=== PATIENT | female | born 1985 | race Two or more races ===

== ENCOUNTER 2021-07-01 13:38 | Outpatient (REF) | payer OTHER, SELFPAY ==
[2021-07-09 04:56] LABS: HPV mRNA E6/E7 rflx Detected (Not Detected)
[2021-07-09 05:01] LABS: HPV 16 RNA NOT DETECTED (NOT DETECTED)
== END 2021-07-01 13:39 | disposition home or self-care (01) ==
LOC: HO.LAB 13:38
PROVIDERS: PCP Physician Assistant; Visit Provider Advanced Practice Midwife
DX: Z01.419 Encounter for gynecological examination (general) (routine) without abnormal findings (principal); Z11.51 Encounter for screening for human papillomavirus (HPV)
CPT/HCPCS: 87624; 87625; 88142

== ENCOUNTER 2021-07-17 09:33 | Outpatient (REF) | payer OTHER, SELFPAY ==
[2021-07-17 10:48] LABS: Thyroid Stimulating Hormone 1.03 uIU/mL (0.32-4.0)
[2021-07-19 17:36] LABS: DHEA Sulfate 288 mcg/dL (19-237); Prolactin 10.9 ng/mL
[2021-07-22 12:21] LABS: Testosterone, Total 21 ng/dL (2-45)
== END 2021-07-17 09:34 | disposition home or self-care (01) ==
LOC: HO.LAB 09:33
PROVIDERS: Absent Provider Physician Assistant; PCP Physician Assistant; Visit Provider Advanced Practice Midwife
DX: L68.0 Hirsutism (principal); L70.9 Acne, unspecified
CPT/HCPCS: 36415; 82627; 83498; 84146; 84402; 84403; 84443

== ENCOUNTER 2021-07-22 10:52 | Outpatient (REF) | payer OTHER, SELFPAY ==
--- NOTE | ~2021-07-22 | US_ITS ---
EXAMINATION: US PELVIS CLINICAL INFORMATION: Hirsutism COMPARISON: None TECHNIQUE: Ultrasound of the pelvis is performed using both transabdominal and transvaginal transducers along with Doppler. Transvaginal imaging is performed due to inadequate visualization transabdominally. FINDINGS: The uterus is anteverted and measures 8 x 4.1 x 4.5 cm in dimension. No focal uterine lesion is seen. Endometrial thickness is normal measuring 0.3 cm. The ovaries are normal-appearing. The right ovary measures 3.1 x 1.1 x 2 cm and the left ovary measures 2.6 x 1.8 x 1.5 cm. There is no fluid in the pelvis. US/US pelvic and transvaginal IMPRESSION: Normal pelvic ultrasound.
== END 2021-07-22 10:53 | disposition home or self-care (01) ==
LOC: HO.US 10:52
PROVIDERS: Visit Provider Advanced Practice Midwife
DX: L68.0 Hirsutism (principal); L70.9 Acne, unspecified
CPT/HCPCS: 76830; 76856

== ENCOUNTER → 2021-08-05 14:49 | Outpatient (BNVA) | payer OTHER, SELFPAY | PROVIDERS: PCP Physician Assistant; Visit Provider Advanced Practice Midwife | DX: R79.89 Other specified abnormal findings of blood chemistry (principal) ==

== ENCOUNTER 2021-08-27 12:48 | Emergency (ER) | payer OTHER, SELFPAY ==
[2021-08-27 13:10] VITALS: BP 152/92; PULSE 76; RESP 18; O2SAT 99; BMI 33.3
[2021-08-27 14:00] VITALS: BP 132/74; PULSE 78; RESP 16; O2SAT 100
--- NOTE | 2021-08-27 14:06 | ED.GENADULT ---
HPI - General Adult General Chief complaint: Nausea/Vomiting/Diarrhea Stated complaint: N/V/D severe abd pain/chills Time Seen by Provider: 08/27/21 14:04 Source: patient Limitations: no limitations History of Present Illness HPI narrative: This is a 35-year-old female who 3 days ago developed nasal congestion rhinorrhea. The patient has had feeling of sinus congestion has been using over the counter sinus spray. She denies any sore throat which she has had chills but no fever. She has had a cough primarily associated with postnasal drip. She denies any allergy symptoms such as sneezing excessively or having itchy eyes. She has had COVID immunizations as well as had COVID in February. She was seen in urgent care today and had a negative COVID test negative influenza. The patient is noted she had diarrhea starting 2 days ago, worse yesterday with about 5-6 episodes yesterday. She has had some pain in her left lower abdomen which was worse yesterday, somewhat improved today. She noted the pain was worse with coughing. She denies any urinary symptoms such as dysuria or urinary frequency. Related Data Home Medications Medication Instructions Recorded Confirmed multivitamin (Daily Multi-Vitamin) 1 tab PO DAILY 04/20/21 08/17/21 fexofenadine 60 mg-pseudoephedrine 1 tab PO Q12H PRN 07/01/21 08/17/21 ER 120 mg tablet,ext.release,12 hr (Nimo-D 12 Hour) ibuprofen 200 mg tablet 400 mg PO Q8H 07/01/21 08/17/21 lactobacillus combination no.4 3 3,000 mmu cells PO DAILY 07/01/21 08/17/21 billion cell capsule (Probiotic) tumeric 100 mg-jimmy 150 mg-olive cap PO 07/01/21 08/17/21 50 mg-oreg 150 mg-caprylate capsule vitamin B complex 1 cap PO DAILY 07/01/21 08/17/21 Allergies Allergy/AdvReac Type Severity Reaction Status Date / Time minocycline Allergy Intermediate Hives Verified 08/17/21 13:40 Review of Systems Review of Systems: Yes all other systems are reviewed and are negative Constitutional: Constitutional: Reports as per HPI, Reports chills and Denies fever(s) Eyes: Eyes: Reports as per HPI and Reports no additional eye complaints ENT: Reports system reviewed and no additional complaints, except as documented, Reports as per HPI, Reports nasal congestion, Reports nasal discharge and Denies sore throat Cardiovascular: Cardiovascular: Reports as per HPI, Denies chest pain and Denies dyspnea Respiratory: Respiratory: Reports as per HPI, Reports cough and Denies dyspnea Gastrointestinal: Gastrointestinal: Reports as per HPI, Reports abdominal pain, Reports diarrhea, Reports nausea and Denies vomiting Genitourinary: Genitourinary: Reports as per HPI, Denies hematuria, Denies urinary frequency and Denies dysuria Musculoskeletal: Musculoskeletal: Reports no additional musculoskeletal complaints and Denies numbness Integumentary/Breasts: Skin/Breast: Reports as per HPI and Denies rash Neurologic: Reports as per HPI, Denies focal weakness and Denies numbness Psychiatric: Psychiatric: Reports no additional psychiatric complaints and Reports as per HPI Endocrine: Endocrine: Reports no additional endocrine complaints and Reports as per HPI Hematologic/Lymphatic: Hematologic/Lymphatic: Reports no additional hematologic/lymphatic complaints, Reports as per HPI and Reports other (No peripheral edema) [facility] Past Medical History Medical History Obesity (BMI 30.0-34.9) Seasonal allergies Surgical History History of nasal surgery History of wisdom tooth extraction Family History Family History (Updated 08/17/21 @ 13:44 by Ector Dee PA-C) Mother HTN (hypertension) Heart attack, Onset Age: 55 Father DMII (diabetes mellitus, type 2) Social History Social History (Updated 08/17/21 @ 13:45 by Ector Dee PA-C) Housing: House Alcohol intake: current Alcohol intake frequency: a few times a month Patient Tobacco Use Status: Never used Tobacco e-Cigarette/Vaping Use: Never Used Second Hand Smoke Exposure: No Advance Directives: No Advance Directives Information Provided: Yes service: No Current occupational status: employed 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[employer] Sexual orientation: Straight/Heterosexual Gender identity: Female Cognitive needs: No Hearing needs: No Vision needs: Yes (glasses) Physical Exam ED Vital Signs: Vital Signs - 24 hr 08/27/21 13:10 08/27/21 14:00 Pulse Rate 76 78 Respiratory Rate 18 16 Blood Pressure 152/92 H 132/74 Pulse Oximetry 99 100 Oxygen Delivery Method Room Air Room Air BMI result Body Mass Index 33.3 Const General: no acute distress Orientation/consciousness: patient oriented x3 HENMT Head: Yes normal to inspection General nose exam: Normal external nose present Mouth: moist mucous membranes Throat: Yes posterior oropharynx normal, Yes tonsils normal and Yes uvula midline Eyes Eyelids: Yes eyelids normal Conjunctivae: conjunctivae normal Pupils: Equal, round and reactive pupils present Neck Neck: Yes supple Resp Effort & Inspection: normal respiratory effort Auscultation: clear to auscultation bilaterally Cardio Rate: regular rate Rhythm: regular rhythm Heart sounds: S1 normal heart sound present, S2 normal heart sound present, no gallops, no murmurs and no rubs GI Inspection: No distended Palpation (GI): Soft to palpation and Tenderness to palpation present (GI) (Mild left lower quadrant, no guarding, no CVA tenderness) Auscultation: normal bowel sounds Skin General skin exam: other (Warm and dry) Neuro General: patient oriented x3 and CN's II-XI intact bilaterally Cranial nerves: Yes Equal, round and reactive pupils present Extrem General: Yes no pedal edema Psych Affect: normal affect Attitude: cooperative Medical Decision Making [facility] Narrative Medical decision making narrative: Patient with a combination of nasal congestion, postnasal drip, mild cough, diarrhea, and left lower quadrant pain that was worse yesterday. Patient had minimal tenderness on exam, does not appear ill. White blood cell count is 7.8. Chemistry panel unremarkable, urinalysis negative. Very low clinical suspicion for diverticulitis given the overall clinical picture, did not feel that imaging to evaluate for diverticulitis or ovarian pathology was indicated. Patient likely has a viral syndrome. Patient had negative COVID influenza test done in urgent care today. Patient was improved with Toradol and normal saline Lab Data Lab results reviewed: Yes I reviewed the patient's lab results. Result diagrams: 08/27/21 14:29 08/27/21 14:29 Labs: Lab Results 08/27/21 08/27/21 08/27/21 Range/Units 14:29 14:29 15:31 WBC 7.8 (4.8-10.8) X10*3/uL RBC 4.37 (4.20-5.50) X10*6/uL Hgb 13.6 (12.0-16.0) g/dl Hct 41.1 (37.0-47.0) % MCV 94.1 (80.0-98.0) fL MCH 31.1 (27.0-33.0) pg MCHC 33.1 (31.0-35.0) g/dl RDW 12.2 (11.0-16.0) % Plt Count 198 (160-400) X10*3/uL MPV 11.2 (9.4-12.3) fL Immature Gran % (Auto) 0.3 (0.0-0.4) % Neut % (Auto) 70.6 (45-73) % Lymph % (Auto) 20.0 (20-40) % Braxton % (Auto) 8.0 (2-11) % Eos % (Auto) 0.8 (0-4) % Baso % (Auto) 0.3 (0-2) % Lymph # (Auto) 1.6 (1.2-4.9) X10*3/uL Braxton # (Auto) 0.6 (0.1-1.2) X10*3/uL Eos # (Auto) 0.1 (0.0-0.4) X10*3/uL Baso # (Auto) 0.0 (0.0-0.2) X10*3/uL Abs Immat Gran (auto) 0.02 (0.00-0.03) X10*3/uL Absolute Neuts (auto) 5.5 (2.0-8.3) x10*3/uL Absolute Nucleated RBC 0.000 (0.0-0.012) X10*3/uL Nucleated RBC % (auto) 0.0 (0.0-0.2) /100WBC Sodium 137 (135-145) mmol/L Potassium 4.2 (3.3-5.1) mmol/L Chloride 101 (96-108) mmol/L Carbon Dioxide 27 (22-29) mmol/L Anion Gap 13 (12-20) BUN 8 L (9-16) mg/dL Creatinine 0.80 (0.5-1.4) mg/dL Estim Creat Clear Calc 107.1 Estimated GFR > 60 Random Glucose 88 (60-115) mg/dL Calcium 8.9 (8.4-10.2) mg/dL Total Bilirubin 0.5 (0.0-1.0) mg/dL AST 24 (5-31) U/L ALT 22 (0-31) U/L Alkaline Phosphatase 59 (39-117) U/L Total Protein 7.3 (6.5-8.0) g/dL Albumin 4.4 (3.5-5.0) g/dL Urine Color YELLOW Urine Appearance CLEAR Urine pH 6.0 (5.0-8.0) Ur Specific Gays 1.020 (1.005-1.025) Urine Protein NEG (NEG-TRACE) MG/DL Urine Glucose (UA) NEG (NEG) MG/DL Urine Ketones >=80 (NEG) MG/DL Urine Blood TRACE (NEG) Urine Nitrite NEG (NEG) Ur Leukocyte Esterase NEG (NEG) Urine RBC 1-4 (0) /HPF Urine WBC 0-2 (0-4) /HPF Ur Squamous Epith Cells 2+ /LPF Urine Bacteria 2+ /LPF Urine Test (NEGATIVE) 08/27/21 Range/Units 15:31 WBC (4.8-10.8) X10*3/uL RBC (4.20-5.50) X10*6/uL Hgb (12.0-16.0) g/dl Hct (37.0-47.0) % MCV (80.0-98.0) fL MCH (27.0-33.0) pg MCHC (31.0-35.0) g/dl RDW (11.0-16.0) % Plt Count (160-400) X10*3/uL MPV (9.4-12.3) fL Immature Gran % (Auto) (0.0-0.4) % Neut % (Auto) (45-73) % Lymph % (Auto) (20-40) % Braxton % (Auto) (2-11) % Eos % (Auto) (0-4) % Baso % (Auto) (0-2) % Lymph # (Auto) (1.2-4.9) X10*3/uL Braxton # (Auto) (0.1-1.2) X10*3/uL Eos # (Auto) (0.0-0.4) X10*3/uL Baso # (Auto) (0.0-0.2) X10*3/uL Abs Immat Gran (auto) (0.00-0.03) X10*3/uL Absolute Neuts (auto) (2.0-8.3) x10*3/uL Absolute Nucleated RBC (0.0-0.012) X10*3/uL Nucleated RBC % (auto) (0.0-0.2) /100WBC Sodium (135-145) mmol/L Potassium (3.3-5.1) mmol/L Chloride (96-108) mmol/L Carbon Dioxide (22-29) mmol/L Anion Gap (12-20) BUN (9-16) mg/dL Creatinine (0.5-1.4) mg/dL Estim Creat Clear Calc Estimated GFR Random Glucose (60-115) mg/dL Calcium (8.4-10.2) mg/dL Total Bilirubin (0.0-1.0) mg/dL AST (5-31) U/L ALT (0-31) U/L Alkaline Phosphatase (39-117) U/L Total Protein (6.5-8.0) g/dL Albumin (3.5-5.0) g/dL Urine Color Urine Appearance Urine pH (5.0-8.0) Ur Specific Gays (1.005-1.025) Urine Protein (NEG-TRACE) MG/DL Urine Glucose (UA) (NEG) MG/DL Urine Ketones (NEG) MG/DL Urine Blood (NEG) Urine Nitrite (NEG) Ur Leukocyte Esterase (NEG) Urine RBC (0) /HPF Urine WBC (0-4) /HPF Ur Squamous Epith Cells /LPF Urine Bacteria /LPF Urine Test NEGATIVE (NEGATIVE) Discharge Plan Discharge Clinical Impression: Acute upper respiratory infection, Diarrhea, Colicky left lower quadrant pain Patient Disposition: Home, Self-Care Instructions: Viral Syndrome (ED), Abdominal Pain (ED) Additional Instructions: Drink plenty of fluids. He can try using Afrin spray, as well as Flonase spray for your nasal symptoms. Return for any new or worsened symptoms such as progressive abdominal pain, fever, pain with movement or walking. Prescriptions: No Action multivitamin [Daily Multi-Vitamin] Tablet 1 tab PO DAILY fexofenadine-pseudoephedrine [Nimo-D 12 Hour] 60-120 mg tablet extended release 12 hr 1 tab PO Q12H PRN ibuprofen 200 mg tablet 400 mg PO Q8H Probiotic 3 billion cell capsule 3,000 mmu cells PO DAILY Rx Instructions: administer with a meal cgohfxq-vyws-orqmx-oreg-capryl 100 mg-150 mg- 50 mg-150 mg capsule PO vitamin B complex Capsule 1 cap PO DAILY Interventions: ED Discharge Assessment Last Done: 08/27/21 16:25 Discharge Date/Time: 08/27/21 16:26
[2021-08-27] MEDS: 0.9 % Sodium Chloride 1,000 ML 999 ML IV (14:29)
[2021-08-27] MEDS: Ketorolac Tromethamine 15 MG/ML VIAL IVPUSH (14:29)
[2021-08-27 14:38] LABS: MANUAL DIFF FLAG NO
[2021-08-27 14:39] LABS: Basophils Percent Auto 0.3 % (0-2); Eosinophils Absolute Auto 0.1 X10*3/uL (0.0-0.4); Eosinophils Percent Auto 0.8 % (0-4); Hematocrit 41.1 % (37.0-47.0); Hemoglobin 13.6 g/dl (12.0-16.0); Imm Gran Abs Auto 0.02 X10*3/uL (0.00-0.03); Imm Gran Pct Auto 0.3 % (0.0-0.4); Lymphocytes Absolute Auto 1.6 X10*3/uL (1.2-4.9); Mean Corpuscular HGB Conc 33.1 g/dl (31.0-35.0); Mean Corpuscular Hemoglobin 31.1 pg (27.0-33.0); Mean Corpuscular Volume 94.1 fL (80.0-98.0); Mean Platelet Volume 11.2 fL (9.4-12.3); Monocytes Absolute Auto 0.6 X10*3/uL (0.1-1.2); Neutrophils Absolute Auto 5.5 x10*3/uL (2.0-8.3); Neutrophils Percent Auto 70.6 % (45-73); Platelet Count 198 X10*3/uL (160-400); Red Blood Count 4.37 X10*6/uL (4.20-5.50); Red Cell Distribution Width 12.2 % (11.0-16.0); White Blood Count 7.8 X10*3/uL (4.8-10.8)
[2021-08-27 15:00] LABS: Alanine Aminotransferase 22 U/L (0-31); Albumin Level 4.4 g/dL (3.5-5.0); Alkaline Phosphatase 59 U/L (39-117); Anion Gap 13 (12-20); Aspartate Amino Transferase 24 U/L (5-31); Bilirubin Total 0.5 mg/dL (0.0-1.0); Blood Urea Nitrogen 8 mg/dL (9-16); Calcium 8.9 mg/dL (8.4-10.2); Carbon Dioxide 27 mmol/L (22-29); Chloride 101 mmol/L (96-108); Creatinine Clr Calc Pharmacy 107.1; Estimated Glomerular Filt Rate > 60; Glucose Random 88 mg/dL (60-115); Potassium 4.2 mmol/L (3.3-5.1); Sodium 137 mmol/L (135-145); Total Protein 7.3 g/dL (6.5-8.0)
[2021-08-27 15:43] LABS: Appearance Urine CLEAR; Color Urine YELLOW; Glucose Urine UA NEG (NEG); Leukocyte Esterase Urine NEG (NEG); Nitrite Urine NEG (NEG); UACC Culture Trigger NO; Urine Blood TRACE (NEG); Urine Ketones >=80 MG/DL (NEG); Urine Protein NEG (NEG-TRACE)
[2021-08-27 15:47] LABS: UPreg QC Valid YES; Urine Pregnancy NEGATIVE (NEGATIVE)
[2021-08-27 15:53] LABS: Bacteria Urine 2+ /LPF; Squamous Epithelial Cell Urine 2+ /LPF; WBC Urine 0-2 /HPF (0-4)
== END 2021-08-27 16:26 | disposition home or self-care (01) ==
PROVIDERS: Emergency Provider Emergency Medicine; PCP Physician Assistant
DX: J06.9 Acute upper respiratory infection, unspecified (principal); R19.7 Diarrhea, unspecified; R10.32 Left lower quadrant pain
CPT/HCPCS: 36415; 80053; 81001; 81025; 85025; 96361; 96374; 99284; J1885

== ENCOUNTER 2021-09-11 08:32 | Outpatient (REF) | payer OTHER, SELFPAY ==
[2021-09-11 09:17] LABS: Hematocrit 41.4 % (37.0-47.0); Hemoglobin 13.6 g/dl (12.0-16.0); Mean Corpuscular HGB Conc 32.9 g/dl (31.0-35.0); Mean Corpuscular Hemoglobin 30.8 pg (27.0-33.0); Mean Corpuscular Volume 93.9 fL (80.0-98.0); Mean Platelet Volume 11.6 fL (9.4-12.3); Platelet Count 199 X10*3/uL (160-400); Red Blood Count 4.41 X10*6/uL (4.20-5.50); Red Cell Distribution Width 12.7 % (11.0-16.0); White Blood Count 8.3 X10*3/uL (4.8-10.8)
[2021-09-11 09:23] LABS: Estimated Average Glucose 108 mg/dL; Hemoglobin A1c % 5.4 %
[2021-09-11 09:35] LABS: Alanine Aminotransferase 17 U/L (0-31); Albumin Level 4.3 g/dL (3.5-5.0); Alkaline Phosphatase 53 U/L (39-117); Anion Gap 12 (12-20); Aspartate Amino Transferase 18 U/L (5-31); Bilirubin Total 0.8 mg/dL (0.0-1.0); Blood Urea Nitrogen 17 mg/dL (9-16); Carbon Dioxide 25 mmol/L (22-29); Chloride 104 mmol/L (96-108); Cholesterol 181 mg/dL; Estimated Glomerular Filt Rate > 60; Glucose Fasting 91 mg/dL (60-99); HDL Cholesterol 54 mg/dL; LDL Cholesterol Calculated 118 mg/dl; Potassium 4.8 mmol/L (3.3-5.1); Sodium 136 mmol/L (135-145); Total Protein 7.1 g/dL (6.5-8.0); Triglycerides 45 mg/dL
[2021-09-11 09:56] LABS: TSH reflex Free T4 1.14 uIU/mL (0.32-4.0); Vitamin D 25-OH Total 29.3 ng/mL (>30)
== END 2021-09-11 08:33 | disposition home or self-care (01) ==
LOC: HO.LAB 08:32
PROVIDERS: PCP Physician Assistant; Visit Provider Physician Assistant
DX: Z13.29 Encounter for screening for other suspected endocrine disorder (principal); Z13.220 Encounter for screening for lipoid disorders; E66.09 Other obesity due to excess calories; Z68.32 Body mass index [BMI] 32.0-32.9, adult
CPT/HCPCS: 36415; 80053; 80061; 82306; 83036; 84443; 85027

== ENCOUNTER → 2021-10-27 13:30 | Outpatient (BNVA) | payer OTHER, SELFPAY | PROVIDERS: PCP Physician Assistant; Visit Provider Dietitian, Registered | DX: Z71.3 Dietary counseling and surveillance (principal); L68.0 Hirsutism; E66.9 Obesity, unspecified | CPT/HCPCS: 97802 ==

== ENCOUNTER 2021-12-13 08:49 | Outpatient (REF) | payer OTHER, SELFPAY ==
[2021-12-13 09:59] LABS: Anion Gap 13 (12-20); Blood Urea Nitrogen 10 mg/dL (9-16); Calcium 8.9 mg/dL (8.4-10.2); Carbon Dioxide 27 mmol/L (22-29); Chloride 105 mmol/L (96-108); Estimated Glomerular Filt Rate > 60; Glucose Random 95 mg/dL (60-115); Potassium 5.1 mmol/L (3.3-5.1); Sodium 140 mmol/L (135-145)
[2021-12-13 10:12] LABS: Creatinine, mg/dL 74.44
[2021-12-13 10:13] LABS: Creatinine, 24Hr Urine 1.4 G/Day (1.0-2.0); Total Volume 24 Hour Urine 1850 mL
[2021-12-20 09:32] LABS: Cortisol Free, 24 Hr Urine 30.4 mcg/24 h (4.0-50.0); Creatinine, 24 Hr Urine 1.44 g/24 h (0.50-2.15); Total Volume, 24 Hr Urine 1850 mL
== END 2021-12-13 08:50 | disposition home or self-care (01) ==
LOC: HO.LAB 08:49
PROVIDERS: PCP Physician Assistant; Visit Provider Internal Medicine Endocrinology, Diabetes & Metabolism
DX: L68.0 Hirsutism (principal)
CPT/HCPCS: 36415; 80048; 82530; 82570

== ENCOUNTER 2022-01-04 12:47 | Outpatient (REF) | payer OTHER, SELFPAY ==
[2022-01-04 14:32] LABS: Potassium 4.4 mmol/L (3.3-5.1)
== END 2022-01-04 12:48 | disposition home or self-care (01) ==
LOC: HO.LAB 12:47
PROVIDERS: PCP Physician Assistant; Visit Provider Internal Medicine Endocrinology, Diabetes & Metabolism
DX: L68.0 Hirsutism (principal)
CPT/HCPCS: 36415; 84132

== ENCOUNTER → 2022-02-01 13:52 | Outpatient (BNVA) | payer OTHER, SELFPAY | PROVIDERS: PCP Physician Assistant; Visit Provider Dietitian, Registered | DX: Z71.3 Dietary counseling and surveillance (principal); L68.0 Hirsutism; E66.9 Obesity, unspecified | CPT/HCPCS: 97803 ==

== ENCOUNTER → 2022-03-22 16:26 | Outpatient (BNVA) | payer OTHER, SELFPAY | PROVIDERS: PCP Physician Assistant; Visit Provider Internal Medicine Endocrinology, Diabetes & Metabolism | DX: L68.0 Hirsutism (principal) ==

== ENCOUNTER 2022-09-12 09:44 | Outpatient (REF) | payer OTHER, SELFPAY ==
--- NOTE | ~2022-09-12 | XR_ITS ---
EXAMINATION: XR WRIST, RIGHT CLINICAL INFORMATION: Right wrist pain COMPARISON: None available. TECHNIQUE: Four views of the right wrist. FINDINGS: Mild degenerative changes first carpometacarpal joint with joint space narrowing and hypertrophic change. No displaced fracture. Recommend follow-up imaging in 10-14 days if fracture is suspected. XR/XR wrist RT 2V IMPRESSION: Mild degenerative changes first carpometacarpal joint. No displaced fracture. Recommend follow-up imaging in 10-14 days if fracture is suspected.
== END 2022-09-12 09:45 | disposition home or self-care (01) ==
LOC: HO.LAB 09:44
PROVIDERS: PCP Physician Assistant; Visit Provider Physician Assistant
DX: Z13.1 Encounter for screening for diabetes mellitus (principal); M25.531 Pain in right wrist; E28.2 Polycystic ovarian syndrome; E66.9 Obesity, unspecified
CPT/HCPCS: 36415; 73100; 80053; 84443; 85027

== ENCOUNTER 2022-11-08 14:00 | Outpatient (RCR) | payer OTHER, SELFPAY ==
--- NOTE | 2022-10-13 13:47 | MHC.OT.EP ---
[address] [phone] Occupational Therapy Plan of Care Patient Name: Pema Price Date of Evaluation: 10/13/22 Diagnosis: Right Wrist Pain Pain Location: Pain free at rest 7/10 sharp pain in volar wrist, radiating up to base of thumb and at times into volar forearm Pain Score: 7 Pain Scale Used: Numeric (0 - 10) Aggravating Factors: Weightbearing, heavy lifting Alleviating Factors: Orthosis wear (thumb spica), steam room heat or hot pack, ice occasionally Not using medications Assessment: 36 yo female presents w/ worsening right thumb and wrist pain over the past year. 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 On assessment, she has good range, strength and coordination in both hands. She has mild adduction posture of thumb w/ thumb-index opposition, but has good engagement in conversation regarding thumb protection and initiation of stabilization exercises. I anticipate she will do well w/ brief course of OT w/ goal of self management of thumb and wrist pain through HEP and activity modification. Frequency and Duration: The patient will be seen 1x/wk for 2 weeks Short Term Goals: Ind w/ HEP Pt to report ease w/ awareness of CMC positioning during daily activities Pt to report good use of heat and ice appropriate for thumb and dorsal wrist/forearm pain due to overuse activities Vegetable [employer] Goals: Treatment Plan: Therapeutic Exercise Therapeutic Activity Home Exercise Program Patient Education Edema Control ADL Training Paraffin Fluidotherapy MHP Cold Packs Joint Mobilization Soft Tissue Mobilization Kinesiotaping Electronically Signed By: SHARI Matos/Jatinder CHT Please Sign and return to therapist. Thank you once again for your referral.
--- NOTE | 2022-11-09 09:59 | MHC.OT.DC ---
[address] [phone] F: [phone] Occupational Therapy Discharge Note Patient Name: Pema Price Provider: Ector Dee PA-C Diagnosis: Right Wrist Pain Date of Evaluation: 10/13/22 Date of Discharge: 11/08/22 Treatments to Date: 2 Discharge Status: Achieved Goals Independent with HEP Discharge Summary: Pema was referred to OT for assessment and recommendations for right wrist/hand pain. Symptoms consistent with earely stages CMC arthritis and she has done well w/ brief course of OT. She has good follow through w/ HEP and orthosis wear, reports reduction of pain and edema, good understanding of activity modification and use of adaptive equip as needed. Will likely purchase paraffin wax for comfort. Electronically Signed By: Isamar Troncoso OTR/L CHT Please Sign and return to therapist, thank you for your referral.
== END 2022-11-09 09:59 | disposition home or self-care (01) ==
LOC: HO.OT 14:00
PROVIDERS: PCP Physician Assistant; Visit Provider Physician Assistant
DX: M25.531 Pain in right wrist (principal)
CPT/HCPCS: 97110; 97140; 97165

== ENCOUNTER 2023-02-23 09:05 | Outpatient (REF) | payer OTHER, SELFPAY ==
[2023-03-04 06:19] LABS: HPV 16 RNA NOT DETECTED (NOT DETECTED); HPV mRNA E6/E7 rflx Detected (Not Detected)
== END 2023-02-23 09:06 | disposition home or self-care (01) ==
LOC: HO.LNP 09:05
PROVIDERS: PCP Physician Assistant; Visit Provider Advanced Practice Midwife
DX: Z01.419 Encounter for gynecological examination (general) (routine) without abnormal findings (principal); Z87.42 Personal history of other diseases of the female genital tract
CPT/HCPCS: 87624; 87625; 88142

== ENCOUNTER 2023-02-23 09:05 | Outpatient (AMB) | payer OTHER, SELFPAY ==
[2023-02-23 09:14] VITALS: BP 124/74; BMI 34.6
--- NOTE | 2023-02-23 09:14 | MHC.OFFVIS ---
Intake Vital Signs 02/23/23 09:14 Height 5 ft 5 in Weight 208 lb BMI 34.6 BP 124/74 Intake Visit Reasons: Annual Chlorine Cell Tender Required: No Information Interpreted: non-clinical & clinical Comparison Shopper: Comparison Shopper Present (Jose Manuel) Allergies minocycline Allergy (Intermediate, Verified 02/23/23 09:19) Hives Is last menstrual period known: Yes Last menstrual period: 02/02/23 Post menopausal: No HPI HPI Comments History of Present Illness Details She is a premenopausal woman presenting for annual examination. Doing well with no concerns. She tries to eat healthy and stays active with exercise. Regular monthly menses. Currently is sexually active. Use condoms and fertility awareness. Hx. of PCOS, goals are occurring regularly your seen by Endocrine in the past in has the option of follow-up and restart spironolactone if needed. She is not interested in control today. She denies vaginal itching and irritation. STI screening offered; she declines. Denies family history of breast, ovarian or colon cancer. Last pap smear HPV positive. Prior Pap done at [facility] cytology was negative no HPV results were noted in our record. Patient reports years ago she had HPV positive results. Current recommendations for pap smears per ASCCP guidelines. [facility] Medical History Obesity (BMI 30.0-34.9) Seasonal allergies Surgical History History of wisdom tooth extraction History of nasal surgery Family History Mother HTN (hypertension) Heart attack, Onset Age: 55 Father DMII (diabetes mellitus, type 2) Social History Household Members: Spouse and Family Household Members Other:: , son Housing: House Alcohol intake: current Alcohol intake frequency: a few times a month Patient Tobacco Use Status: Never used Tobacco e-Cigarette/Vaping Use: Never Used Second Hand Smoke Exposure: No Substance Use Type: Marijuana service: No Current occupational status: employed 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/hazards: No Sexual orientation: Straight/Heterosexual Gender identity: Female Cognitive needs: No Hearing needs: No Vision needs: Yes (glasses) Female Reproductive History Menstrual Age of Menarche: 10 Duration of menses: 6-7 days Date of last menstrual period: 02/02/23 control method: none and condoms Total pregnancies: 4 Full term: 1 Number of Living Children: 1 Ab spontaneous: 3 Date of last pap smear: 07/02/21 (+HPV) History of abnormal pap smear: Yes Review of Systems Const All systems reviewed & are unremarkable except as noted in HPI and below Reports as per HPI Eyes Reports no additional complaints ENT Reports no additional complaints Card Reports no additional complaints Resp Reports no additional complaints GI Reports as per HPI and Reports no additional complaints Reports as per HPI Musc Reports no additional complaints Skin/Breast Reports as per HPI Neuro Reports no additional complaints Psych Reports no additional complaints Endo Reports no additional complaints Alfred/Lymph Reports no additional complaints Aller/Immun Reports no additional complaints Physical Exam Vital Signs: Last Vital Signs BP 124/74 02/23/23 09:14 BMI result Body Mass Index 34.6 Const General: cooperative, healthy appearing, no acute distress, well developed and alert Orientation/consciousness: patient oriented x3 HEENT Head: Yes normal to inspection Eyes General: appearance normal, both eyes and all related structures Neck Neck: Yes normal visual inspection Thyroid: Thyroid normal Chest Chest palpation & inspection: normal inspection of the chest and other (no puckering, dimpling, peau de orange, retraction, discharge, masses) Breast/axilla inspection: normal inspection of the breasts Breast/axilla palpation: normal palpation of the breasts Resp Effort & Inspection: normal respiratory effort GI Inspection: Yes normal to inspection Palpation (GI): Soft to palpation Rectal Exam - Female: deferred General: Yes bladder normal to palpation External Female Exam: normal external appearance and normal appearance of the urethra Speculum Exam - Vagina: normal appearance of the vagina, normal palpation and normal vaginal discharge Speculum Exam - Cervix: normal appearance of the cervix and normal palpation Bimanual exam- vagina & uterus: normal bimanual exam, normal palpation, uterine size normal, bladder normal to palpation, normal palpation and non-tender Bimanual Exam- Adnexa, other: no masses Skin General skin exam: no rashes or lesions noted Rashes: no rashes Neuro General: patient oriented x3 Cognition (Neuro): normal cognition Extrem General: Yes normal to inspection Psych Attitude: cooperative Thought process: Normal thought process present Assessment & Plan Assessment & Plan (1) Encounter for well woman exam with routine gynecological exam: Code(s): Z01.419 - Encounter for gynecological examination (general) (routine) without abnormal findings (2) History of abnormal cervical Pap smear: Code(s): Z87.42 - Personal history of other diseases of the female genital tract Plan Discussed: Current recommendations for pap smears per ASCCP guidelines. Anticipatory guidance: HPV findings and observations, await results if negative plan repeat Pap next year. If positive will need a colposcopy. Breast awareness and periodic breast exams. Order placed for mammogram to be done after her 38th birthday next year. Counseled regarding not wearing any talcum powder, deodorant, lotions, creams or sprays. Maintain a healthy lifestyle including a well balanced diet and routine exercise. Use condoms for prevention. Sign a release for Pap HPV P results from 01/31/2020 from [facility]. All of her questions and concerns were addressed to the best of my ability. 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 Orders: Orders MM tomosynthesis screening BI 12/28/23 Z12.31 - Encounter for screening mammogram for malignant neoplasm of breast Coding Level of Care Code Est Pt Prev Care [id number]([id number]) Diagnoses Encounter for well woman exam with routine gynecological exam Z01.419 History of abnormal cervical Pap smear Z87.42
== END 2023-02-23 10:01 | disposition home or self-care (01) ==
PROVIDERS: PCP Physician Assistant; Visit Provider Advanced Practice Midwife
DX: Z01.419 Encounter for gynecological examination (general) (routine) without abnormal findings (principal); Z87.42 Personal history of other diseases of the female genital tract
CPT/HCPCS: 99395

== ENCOUNTER 2023-04-06 14:02 | Outpatient (REF) | payer OTHER, SELFPAY | END 2023-04-06 14:03 | disposition home or self-care (01) | LOC: HO.LNP 14:02 | PROVIDERS: PCP Physician Assistant; Visit Provider Obstetrics & Gynecology | DX: R87.610 Atypical squamous cells of undetermined significance on cytologic smear of cervix (ASC-US) (principal); R87.810 Cervical high risk human papillomavirus (HPV) DNA test positive; Z32.02 Encounter for pregnancy test, result negative | CPT/HCPCS: 57454; 81025; 88305 ==

== ENCOUNTER 2023-04-06 14:02 | Outpatient (AMB) | payer OTHER, SELFPAY ==
[2023-04-06 14:22] VITALS: BP 122/70; BMI 34.6
--- NOTE | 2023-04-06 14:22 | A.OFFVIS_ITS ---
Intake Vital Signs 04/06/23 14:22 Height 5 ft 5 in Weight 208 lb BMI 34.6 BP 122/70 Intake Visit Reasons: Colposcopy Game Artist Required: No Information Interpreted: non-clinical & clinical Window Shade Installer: Window Shade Installer Present (Natalie) Allergies minocycline Allergy (Intermediate, Verified 04/06/23 14:22) Hives Is last menstrual period known: Yes Last menstrual period: 03/30/23 Post menopausal: No Patient : No HPI HPI Comments History of Present Illness Details Presenting for colposcopy for ascus/HPV E6/E7 positive [facility] Medical History Obesity (BMI 30.0-34.9) Seasonal allergies Surgical History History of wisdom tooth extraction History of nasal surgery Family History Mother HTN (hypertension) Heart attack, Onset Age: 55 Father DMII (diabetes mellitus, type 2) Social History Household Members: Spouse and Family Household Members Other:: , son Housing: House Alcohol intake: current Alcohol intake frequency: a few times a month Patient Tobacco Use Status: Never used Tobacco e-Cigarette/Vaping Use: Never Used Second Hand Smoke Exposure: No Substance Use Type: Marijuana Patient : No service: No Current occupational status: employed 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[employer] Current occupational exposures/hazards: No Sexual orientation: Straight/Heterosexual Gender identity: Female Cognitive needs: No Hearing needs: No Vision needs: Yes (glasses) Female Reproductive History Menstrual Age of Menarche: 10 Date of last menstrual period: 03/30/23 control method: none Review of Systems Const All systems reviewed & are unremarkable except as noted in HPI and below Reports as per HPI and Reports no additional complaints GI Reports no additional complaints Reports no additional complaints Physical Exam Vital Signs: Last Vital Signs BP 122/70 04/06/23 14:22 BMI result Body Mass Index 34.6 Office Procedures Colposcopy Before the procedure was started discussed with the patient the procedure, alternatives & all the risks associated with the procedure (bleeding, infection, injury to vagina, bladder, vessels, possible need for transfusion with all its risks) then patient signed the consent UPT done in the office & negative Pap smear = ascus/HPV E6/E7 positive Speculum inserted, acetic acid used Colposcopy done Transformation zone seen, acetowhite lesions identified at 5+6+7+11+12+1+3 o?clock, cervical biopsies taken from 5+6+7+11+12+1+3 o?clock, ECC done afterwards. Vaginoscopy of the upper vagina showed no evidence of any aceto-white lesions Monsel solution used for hemostasis. The patient tolerated well . At the end the patient was instructed to call if temp>100.4, abdominal pain, n/v, bleeding; The patient was given the following instructions: nothing per vagina, no intercourse or bath tub use. All questions answered the patient verbalized understanding. Instructed the patient to make an appointment in 2 weeks for follow-up This note was generated with a voice recognition program. Some errors may have b een overlooked during the review of this note. Sometimes these errors may affect the content or meaning of a given sentence. [id number]-[id number] of cervix including upper vagina with biopsy and ECC Procedure code (CPT) selection complete Results AMB Test Urine AMB Test Urine Negative Last Edit by LEANNA Bartlett on 04/06/23 14:24 Results Reviewed Results Reviewed: Laboratory Last Values Tst Clinic Negative 04/06/23 14:23 Assessment & Plan Assessment & Plan (1) ASCUS with positive high risk HPV cervical: Code(s): R87.610 - Atypical squamous cells of undetermined significance on cytologic smear of cervix (ASC-US); R87.810 - Cervical high risk human papillomavirus (HPV) DNA test positive Plan: Colpo done, see procedure note Orders: Orders AMB HCG Urine Test Today Z32.02 - Encounter for test, result negative AMB Colposcopy Today R87.610 - Atypical squamous cells of undetermined significance on cytologic smear of cervix (ASC-US), R87.810 - Cervical high risk human papillomavirus (HPV) DNA test positive Coding Level of Care Code Procedure Only Diagnoses ASCUS with positive high risk HPV cervical R87.610; R87.810 CPT Codes Colposcopy - CPT: 97956-Agqsxfeez of cervix including upper vagina with biopsy and ECC ([id number])
== END 2023-04-06 14:40 | disposition home or self-care (01) ==
LOC: HO.HWS 14:02
PROVIDERS: PCP Physician Assistant; Visit Provider Obstetrics & Gynecology
DX: R87.610 Atypical squamous cells of undetermined significance on cytologic smear of cervix (ASC-US) (principal); R87.810 Cervical high risk human papillomavirus (HPV) DNA test positive; Z32.02 Encounter for pregnancy test, result negative
CPT/HCPCS: 57454

== ENCOUNTER 2023-05-11 12:09 | Outpatient (AMB) | payer OTHER, SELFPAY ==
--- NOTE | 2023-05-11 12:12 | MHC.OFFVIS ---
Intake Vital Signs 05/11/23 12:14 Height 5 ft 5 in Weight 208 lb BMI 34.6 BP 118/70 Intake Visit Reasons: Colpo results Cruise Coordinator Required: No Information Interpreted: non-clinical & clinical Assistant Service Manager: Assistant Service Manager Present Accompanied by: Self / Same As Patient Allergies minocycline Allergy (Intermediate, Verified 05/11/23 12:15) Hives Is last menstrual period known: Yes Last menstrual period: 04/26/23 Post menopausal: No Patient : No HPI HPI Comments History of Present Illness Details Presenting post colpo for follow-up. The patient is doing well with no complaints. The pathology showed the following: A. Cervix, 1:00, biopsy: Squamous mucosa and rare detached endocervical glandular epithelial cells; negative for dysplasia. B. Cervix, 3:00, biopsy: Squamous and endocervical glandular mucosa with acute and chronic inflammation and reactive changes; negative for dysplasia. C. Cervix, 6:00, biopsy: Squamous mucosa and rare detached endocervical glandular epithelial cells; negative for dysplasia. D. Cervix, 7:00, biopsy: Squamous and endocervical glandular mucosa; negative for dysplasia. E. Cervix, 11:00, biopsy: Squamous and endocervical glandular mucosa with focal mild atypia (see comment). F. Cervix, 12:00, biopsy: Squamous and endocervical glandular mucosa with focal reactive changes; negative for dysplasia. D. Endocervix, curettage: Endocervical glandular mucosa with scant metaplastic squamous epithelium with inflammation and reactive changes; negative for dysplasia. Comment: (F): The atypia is insufficient for unequivocal diagnosis of mild dysplasia. There is no evidence of high- grade dysplasia. The rare atypical cells in the patient's previous Pap test ([id number]) are similar to the atypical cells in the biopsy [facility] Medical History Obesity (BMI 30.0-34.9) Seasonal allergies Surgical History History of wisdom tooth extraction History of nasal surgery Family History Mother HTN (hypertension) Heart attack, Onset Age: 55 Father DMII (diabetes mellitus, type 2) Social History Household Members: Spouse and Family Household Members Other:: , son Housing: House Alcohol intake: current Alcohol intake frequency: a few times a month Patient Tobacco Use Status: Never used Tobacco e-Cigarette/Vaping Use: Never Used Second Hand Smoke Exposure: No Substance Use Type: Marijuana service: No Current occupational status: employed 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/hazards: No Sexual orientation: Straight/Heterosexual Gender identity: Female Cognitive needs: No Hearing needs: No Vision needs: Yes (glasses) Female Reproductive History Menstrual Age of Menarche: 10 Date of last menstrual period: 04/26/23 Review of Systems Const All systems reviewed & are unremarkable except as noted in HPI and below Reports as per HPI and Reports no additional complaints GI Reports no additional complaints Reports no additional complaints Physical Exam Vital Signs: Last Vital Signs BP 118/70 05/11/23 12:14 BMI result Body Mass Index 34.6 Assessment & Plan Assessment & Plan (1) ASCUS with positive high risk HPV cervical: Comment: Biopsy ? Equivocal for REGINE 1 Code(s): R87.610 - Atypical squamous cells of undetermined significance on cytologic smear of cervix (ASC-US); R87.810 - Cervical high risk human papillomavirus (HPV) DNA test positive Plan: Discussed with the patient the pathology results of the colposcopy biopsies & endocervical curettage (1 biopsy equivocal for mild dysplasia-REGINE 1). Discussed with the patient the sensitivity specificity, positive and negative predictive value in detecting cervical cancer in addition discussed the regression, persistence and progression rates. Recommended co-testing in 12 months, if cytology and or HPV are abnormal will proceed was colposcopy biopsy and endocervical curettage, if lesions gets worse or stays persistent for 2 years will proceed with loop electric excision procedure. Instructions given to the patient to schedule a co test appointment in 1 year. All questions answered the patient verbalized understanding. Coding Level of Care Code Est Pt Level 3 (22575) Diagnoses ASCUS with positive high risk HPV cervical R87.610; R87.810
[2023-05-11 12:14] VITALS: BP 118/70; BMI 34.6
== END 2023-05-11 12:26 | disposition home or self-care (01) ==
PROVIDERS: PCP Physician Assistant; Visit Provider Obstetrics & Gynecology
DX: R87.610 Atypical squamous cells of undetermined significance on cytologic smear of cervix (ASC-US) (principal); R87.810 Cervical high risk human papillomavirus (HPV) DNA test positive
CPT/HCPCS: 99213

== ENCOUNTER → 2023-05-11 12:09 | Outpatient (BNVA) | payer OTHER, SELFPAY | PROVIDERS: PCP Physician Assistant; Visit Provider Obstetrics & Gynecology ==

== ENCOUNTER 2023-08-22 16:04 | Outpatient (AMB) | payer OTHER, SELFPAY ==
[2023-08-22 16:08] VITALS: BP 148/88; PULSE 76; O2SAT 99; BMI 34.9
--- NOTE | 2023-08-22 16:08 | A.OFFPC_ITS ---
Vital Signs 08/22/23 16:08 Height 5 ft 5 in Weight 210 lb BMI 34.9 BP 148/88 H Blood Pressure Location Lt brachial Position Sitting Pulse 76 Pulse Source Pulse Oximeter Pulse Oximetry (%) 99 Oxygen Delivery Method Room Air Intake Visit Reasons: PE Intake Note: Patient is here today for a physical. Personal Clothing Laundry Aide Required: No Accompanied by: Self / Same As Patient Is last menstrual period known: Yes Last menstrual period: 08/22/23 Allergies minocycline Allergy (Intermediate, Verified 08/22/23 16:19) Hives Medication List - Last Reconciled 08/22/23 by Ector Dee PA-C multivitamin (Daily Multi-Vitamin tablet) 1 tab PO DAILY Tobacco use date assessed: 08/22/23 HPI PE HPI Details Patient is a 37 year female here today for a annual physical. No past medical history with exception of elevated BMI. ? She works at [employer] in [employer]. Concern--> she reports she has been having lower back/buttocks pain especially after physical activity. She attributes this to her distant injury to her left buttocks. She is somewhat interested in physical therapy those worried about cost. She has been doing her own home stretches. She is willing to try a muscle relaxer to help as needed for pain. .. Anxiety: She has been suffering with more anxiety as of late to which she has been doing nonpharmacological techniques to help reduce her anxiety. She has not interested in any medication at this time though is interested in cognitive behavioral therapy. Will refer to counseling .. PCOS: Has been diagnosed with PCOS by her die cast operator and has been working on special dietary changes to help regulate her mood and weight. 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 She does have a family history diabetes and heart disease. RENAL NURSE:?followed [place] [facility], found to have elevated DHEA levels, Pap showing positive HPV. She has gotten cervical biopsy. .. Vaccine: declines Flu,? ?up-to-date with COVID vaccine, Needs Tdap. Laboratory Tests 07/01/21 07/17/21 09/11/21 14:28 09:51 08:52 RBC 4.41 Fasting Glucose TSH DHEA Sulfate 288 H Tst Clin ic HPV E6/E7 mRNA Detected A 09/12/22 02/23/23 04/06/23 09:53 10:08 14:23 RBC Fasting Glucose 102 H TSH 1.24 DHEA Sulfate Tst Clin ic Negative HPV E6/E7 mRNA Detected A [facility] Medical History Obesity (BMI 30.0-34.9) Seasonal allergies Surgical History History of wisdom tooth extraction History of nasal surgery Family History Mother HTN (hypertension) Heart attack, Onset Age: 55 Father DMII (diabetes mellitus, type 2) Social History (Updated 08/22/23 @ 16:23 by Ector Dee PA-C) Household Members: Spouse and Family Household Members Other:: , son Housing: House Alcohol intake: current Alcohol intake frequency: a few times a month Patient Tobacco Use Status: Never used Tobacco e-Cigarette/Vaping Use: Never Used Second Hand Smoke Exposure: No Substance Use Type: Marijuana service: No Current occupational status: employed 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[employer] Current occupational exposures/hazards: No Sexual orientation: Straight/Heterosexual Gender identity: Female Cognitive needs: No Hearing needs: No Vision needs: Yes (glasses) Female Reproductive History Menstrual Age of Menarche: 10 Date of last menstrual period: 08/22/23 Questionnaire PHQ-9 Over the last 2 weeks, how often have you been bothered by any of the following problems? 1. Little interest or pleasure in doing things: not at all 2. Feeling down, depressed, or hopeless: not at all 3. Trouble falling or staying asleep, or sleeping too much: not at all 4. Feeling tired or having little energy: not at all 5. Poor appetite or overeating: not at all 6. Feeling bad about yourself - or that you are a failure or have let yourself or your family down: not at all 7. Trouble concentrating on things, such as reading the newspaper or watching television: not at all 8. Moving or speaking so slowly that other people could have noticed. Or the opposite - being so fidgety or restless that you have been moving around a lot more than usual: not at all 9. Thoughts that you would be better off or of hurting yourself in some way: not at all Total score: 0 Depression Screening Interpretation: Negative Depression Screening Done: Yes 67402 - PHQ-9 Billing: Yes Source: Developed by Drs. Brooks France, Airam Key, Cory Hall and colleagues, with an educational derik from [employer]. Thrive Questionnaire Date Thrive assessed: 08/22/23 I am a: Patient What is your living situation today?: I have a steady place to live Within the past 12 months, did the food you bought not last and you didn't have the money to get more?: Never true Within the past 12 months, did you worry whether your food would run out before you got money to buy more?: Never true Do you have trouble paying for medicines?: No Do you have trouble getting transportation to medical appointments?: No Do you have trouble paying your heating and electricity bill?: No Do you have trouble taking care of your child, family member or friend?: No Do you have trouble with day-to-day activities such as bathing, preparing meals, shopping, managing finances, etc.?: No Are you currently unemployed and looking for a job?: No Are you interested in more education?: No Please select the resources that you would like help with: None Currently or been in a relationship where the following occur: no concerns reported THRIVE Score: 0 AUDIT C Alcohol Use Questionnaire (AUDIT-C) 1. How often do you have a drink containing alcohol?: Monthly or less 2. How many drinks containing alcohol do you have on a typical day when you are drinking?: 1 or 2 3. How often do you have six or more drinks on one occasion?: Never Total Score: 1 FERNY-7 AMB Questionnaire FERNY-7 Date FERNY - 7 assessed: 08/22/23 Feeling nervous, anxious, or on edge: 0 = Not at all Not being able to stop or control worryin = Several days Worrying too much about different things: 1 = Several days Trouble relaxin = Several days Being so restless that it is hard to sit still: 0 = Not at all Becoming easily annoyed or irritable: 0 = Not at all Feeling afraid as if something awful might happen: 0 = Not at all Total FERNY-7 score (0-4 normal; 5-9 mild; 10-14 moderate; 15-21 severe): 3 Source: Developed by Drs. Brooks France, Airam Key, Cory Hall and colleagues, with an educational derik from [employer]. FERNY-7 Assessment Billing FERNY-7 Assessment Tool: FERNY-7 Assessment 49899 Review of Systems Const Denies body aches, Denies chills, Denies excessive sweating, Denies fatigue, Denies fever(s) and Denies headache(s) Eyes Denies blurry vision ENT Denies dysphagia, Denies vertigo, Denies dizziness, Denies headache(s), Denies hearing loss and Denies tinnitus Card Denies chest pain, Denies chest pain with activity, Denies syncope, Denies irregular heart rhythm and Denies dyspnea Resp Denies chest congestion, Denies cough, Denies hemoptysis, Denies dyspnea and Denies wheezing GI Denies abdominal pain, Denies melena, Denies hematochezia, Denies coffee ground emesis, Denies dysphagia, Denies diarrhea, Denies nausea and Denies vomiting Denies urinary frequency, Denies dysuria, Denies urinary hesitancy and Denies urinary urgency Musc Denies arthralgias, Denies limited range of motion, Denies muscle cramps and Denies muscle weakness Skin/Breast Denies rash and Denies skin ulcer Neuro Denies Abnormal speech present, Denies confusion, Denies vertigo, Denies dizziness, Denies syncope, Denies headache(s), Denies memory loss and Denies seizure-like activity Psych Denies anxiety, Denies confusion, Denies depression, Denies memory loss, Denies panic attacks and Denies paranoia Endo Denies excessive sweating, Denies fatigue, Denies flushing, Denies polydipsia and Denies polyuria Aller/Immun Denies wheezing Physical exam (Primary Care) Vital Signs: Last Vital Signs Pulse 76 08/22/23 16:08 BP 148/88 H 08/22/23 16:08 Pulse Ox 99 08/22/23 16:08 Oxygen Delivery Method Room Air 08/22/23 16:08 BMI result Body Mass Index 34.9 BMI Assessment/Plan discussion: High BMI High, discussed plan: lifestyle, weight reduction and physical activity Tobacco/Smoking Status: Tobacco use Status Tobacco use date assessed 06/11/24 06/11/24 16:12 Patient Tobacco Use Status Never used Tobacco 08/22/23 16:23 e-Cigarette/Vaping Use Never Used 08/22/23 16:23 PHQ-9: PHQ-9 Score PHQ-9: Total score 0 08/22/23 16:45 Depression Screening Interpretation: Negative Thrive Assessment: Date of Thrive Assessment Date Thrive assessed 08/22/23 08/22/23 16:12 Currently or been in a relationship where the following occur: no concerns reported Const General: cooperative, comfortable, no acute distress, alert and awake; No confusion Orientation/consciousness: oriented to person, oriented to place, patient oriented x3 and No confusion HENMT Head: Yes normocephalic Ears: external ears normal and TM's normal bilaterally Face and sinus: No sinus tenderness Mouth: Normal oral and palatal mucosa present and tongue normal Teeth and gingiva: dentition normal and gingiva normal Throat: Yes posterior oropharynx normal, Yes tonsils normal and Yes uvula midline Eyes Conjunctivae: conjunctivae normal Sclerae: sclerae normal Pupils: Equal, round and reactive pupils present EOM: EOMs intact bilaterally Direct Ophthalmoscopy: No no photophobia Neck Neck: Yes no lymphadenopathy, No tender and Yes no JVD Thyroid: Thyroid normal Carotids: no bruits Chest Chest palpation & inspection: no tenderness Resp Effort & Inspection: normal respiratory effort, no audible wheezes, not labored and no stridor Auscultation: no crackles, no rales, no rhonchi and no wheezes Cardio Jugular venous distension: no JVD Rate: regular rate, not bradycardic and not tachycardic Rhythm: regular rhythm Bruits: no carotid bruits Peripheral pulses: Peripheral pulses 2+ throughout GI Inspection: Yes normal to inspection, No abdominal wall ecchymosis and No visible herniation Palpation (GI): Soft to palpation, nontender, no guarding, not rigid and No hepatosplenomegaly present Auscultation: normoactive bowel sounds General: Yes no CVA tenderness Back/Spine/Pelvis Back: no CVA tenderness and No back tenderness Cervical Spine: cervical ROM normal Thoracic/Lumbar Spine: thoracic and lumbar spine normal to inspection, straight leg raise negative bilaterally, No thoraco-lumbar ROM limited and No lumbar spinal tenderness Skin Lesions: no lesions Rashes: no rashes Wounds: no wounds Neuro General: oriented to person, oriented to place, patient oriented x3, CN's II-XI intact bilaterally and No confusion Cranial nerves: Yes Equal, round and reactive pupils present and Yes Normal ac commodation reflex present Cognition (Neuro): normal cognition Speech: No Abnormal speech present Gait exam (Neuro): Normal gait present Motor exam (neuro): 5/5 motor strength present throughout Extrem Right upper extremity: full ROM; no cyanosis Left upper extremity: full ROM; no cyanosis Right lower extremity: no edema Left lower extremity: no edema Psych Appearance: grossly normal Mental Status: mental status grossly normal Affect: normal affect Attitude: cooperative Thought process: Normal thought process present Immunizations Boostrix Tdap 2.5 Lf unit-8 mcg-5 Lf/0.5 mL intramuscular syringe Performing Provider: Ector Dee PA-C [facility] Administered by: SHAHLA Hernandez on 08/22/23 16:53 Dose Route Admin Location Dispensed Lot Number Expiration Date NDC Track Maintainer 0.5 mL IM Right Deltoid 0.5 mL [id number] 10/18/25 [id number] [employer] VIS Given Date VIS Provided VIS Publication Date 08/22/23 Single Vaccine 20 Eligibility Eligibility Date Funding Source Not [facility] Eligible 08/22/23 Private Assessment and Plan Assessment & Plan (1) Annual physical exam: Code(s): Z00.00 - Encounter for general adult medical examination without abnormal findings (2) Obese: Code(s): E66.9 - Obesity, unspecified Qualifiers: Body mass index: BMI 32.0-32.9 Obesity classification: adult class 1 (BMI 30 - 34.9) Obesity type: due to excess calories Serious obesity comorbidity presence: without serious comorbidity Qualified Code(s): E66.09 - Other obesity due to excess calories; Z68.32 - Body mass index [BMI] 32.0-32.9, adult Plan: Patient does understand her BMI is over 30 and continues to work on being more physically active and adapting to better eating habits to reduce her weight. (3) PCOS (polycystic ovarian syndrome): Code(s): E28.2 - Polycystic ovarian syndrome Plan: Has been diagnosed with PCOS and continues on dietary and lifestyle modifications (4) Screening for diabetes mellitus (DM): Code(s): Z13.1 - Encounter for screening for diabetes mellitus (5) ASCUS with positive high risk HPV cervical: Comment: Biopsy ? Equivocal for REGINE 1 Code(s): R87.610 - Atypical squamous cells of undetermined significance on cytologic smear of cervix (ASC-US); R87.810 - Cervical high risk human papillomavirus (HPV) DNA test positive Plan: Followed by [place] [facility] office. Did have cervical biopsy and REGINE 1, continues follow-up (6) Elevated fasting glucose: Code(s): R73.01 - Impaired fasting glucose Plan: Did have a slightly elevated fasting blood sugar. Will check an A1c (7) Low back pain: Code(s): M54.50 - Low back pain, unspecified Qualifiers: Back pain laterality: unspecified Chronicity: chronic Sciatica presence: without sciatica Qualified Code(s): M54.50 - Low back pain, unspecified; G89.29 - Other chronic pain Plan: Patient does report having some lower back pain and tension from time to time especially after she does some physical activity. She is interested in trying a muscle relaxer as needed. She is apprehensive on doing therapy or getting x- rays due to insurance costs. (8) FERNY (generalized anxiety disorder): Code(s): F41.1 - Generalized anxiety disorder Plan: Patient' ferny 7 score positive for anxiety which has been existing condition for her. She is interested in cognitive behavioral therapy. Will refer to counseling (9) Elevated blood pressure reading: Code(s): R03.0 - Elevated blood-pressure reading, without diagnosis of hypertension Plan: Noted elevated blood pressure readings today in office. Patient reports she has been feeling bit anxious and believes this is the reason for high blood pressure. She will monitor blood pressure at home over the next few weeks and correspond in the portal about blood pressure readings. Will consider spironolactone as a blood pressure medication and to help with some of her PCOS symptoms. Orders: Orders Hemoglobin A1c 08/22/23 E28.2 - Polycystic ovarian syndrome, R73.01 - Impaired fasting glucose Comprehensive [place]. Panel Fast 08/22/23 Z13.1 - Encounter for screening for diabetes mellitus Complete Blood Count no Diff 08/22/23 R87.610 - Atypical squamous cells of undetermined significance on cytologic smear of cervix (ASC-US), R87.810 - Cervical high risk human papillomavirus (HPV) DNA test positive TDaP Immunization 08/22/23 M54.50 - Low back pain, unspecified, Z23 - Encounter for immunization Referrals Counseling Referral F41.1 - Generalized anxiety disorder Medications: New baclofen 5 mg PO DAILY 10 tabs 0RF 10 days M54.50 - Low back pain, unspecified Patient Instructions: Goal: Continue working on weight reduction, monitor blood pressure at home with blood pressure readings to be below 140/90 Barriers: Adherence to physical activity and healthy eating habits Coding Level of Care Code Est Pt Prev Care 18-39y(04786) Diagnoses Annual physical exam Z00.00 Class 1 obesity due to excess calories without serious comorbidity with body mass index (BMI) of 32.0 to 32.9 in adult E66.09; Z68.32 Body mass index: BMI 32.0-32.9 Obesity classification: adult class 1 (BMI 30 - 34.9) Obesity type: due to excess calories Serious obesity comorbidity presence: without serious comorbidity PCOS (polycystic ovarian syndrome) E28.2 Screening for diabetes mellitus (DM) Z13.1 ASCUS with positive high risk HPV cervical R87.610; R87.810 Elevated fasting glucose R73.01 Chronic low back pain without sciatica, unspecified back pain laterality M54.50; G89.29 Back pain laterality: unspecified Chronicity: chronic Sciatica presence: without sciatica FERNY (generalized anxiety disorder) F41.1 Elevated blood pressure reading R03.0 Additional Codes FERNY-7 Assessment Billing - FERNY-7 Assessment Tool: FERNY-7 Assessment [id number] ([id number])
== END 2023-08-22 16:48 | disposition home or self-care (01) ==
PROVIDERS: PCP Physician Assistant; Visit Provider Physician Assistant
DX: Z23 Encounter for immunization (principal); M54.50 Low back pain, unspecified
CPT/HCPCS: 90471; 90715; 99395

== ENCOUNTER 2023-08-28 09:52 | Outpatient (AMB) | payer OTHER, SELFPAY ==
[2023-08-28 09:52] VITALS: BP 136/70; PULSE 76; TEMP 36.2; O2SAT 98; BMI 34.8
--- NOTE | 2023-08-28 09:52 | AM.OFFWIN_ITS ---
Intake Vital Signs 08/28/23 09:52 Height 5 ft 5 in Weight 209 lb BMI 34.8 BP 136/70 Blood Pressure Location Lt brachial Position Sitting Pulse 76 Temp 97.2 F Temp Source Temporal Artery Scan Pulse Oximetry (%) 98 Oxygen Delivery Method Room Air Intake Visit Reasons: EP chest congestion ear infection Intake Note: pt is here today for chest congestion started 2 weeks ago Patient Tobacco Use Status: Never used Tobacco Allergies minocycline Allergy (Intermediate, Verified 08/28/23 09:57) Hives Do you need a note to return to daycare/school/sports/work: Yes HPI HPI Comments History of Present Illness Details Patient is a 37-year-old female with a past medical history of chronic bilateral ear infections complaining of chest congestion, postnasal drip, sinus pain, cough with green phlegm, some diarrhea that she attributes to the phlegm and fatigue x2 weeks. She states her also has similar symptoms, was seen at an urgent Care but given [id number] medications to treat his illness and has not gotten better. She has been using Mucinex with some relief. She denies any fevers [facility] Medical History Obesity (BMI 30.0-34.9) Seasonal allergies Surgical History History of wisdom tooth extraction History of nasal surgery Family History Mother HTN (hypertension) Heart attack, Onset Age: 55 Father DMII (diabetes mellitus, type 2) Social History (Updated 08/22/23 @ 16:23 by Ector Dee PA-C) Household Members: Spouse and Family Household Members Other:: , son Housing: House Alcohol intake: current Alcohol intake frequency: a few times a month Patient Tobacco Use Status: Never used Tobacco e-Cigarette/Vaping Use: Never Used Second Hand Smoke Exposure: No Substance Use Type: Marijuana service: No Current occupational status: employed 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[employer] Current occupational exposures/hazards: No Sexual orientation: Straight/Heterosexual Gender identity: Female Cognitive needs: No Hearing needs: No Vision needs: Yes (glasses) Female Reproductive History Menstrual Age of Menarche: 10 Review of Systems Const All systems reviewed & are unremarkable except as noted in HPI and below Physical Exam Vital Signs: Last Vital Signs Temp 97.2 F 08/28/23 09:52 Pulse 76 08/28/23 09:52 BP 136/70 08/28/23 09:52 Pulse Ox 98 08/28/23 09:52 Oxygen Delivery Method Room Air 08/28/23 09:52 BMI result Body Mass Index 34.8 Const General: cooperative, healthy appearing, comfortable and no acute distress Orientation/consciousness: patient oriented x3 Limitations: no limitations HEENT Head: Yes normal to inspection Ears: external ears normal, TM normal on the left and TM abnormal wth effusion and erythematous General nose exam: Normal external nose present, Normal nares present and No nasal discharge present Face and sinus: Yes normal facial exam and Yes sinuses nontender Mouth: Normal oral and palatal mucosa present and moist mucous membranes Throat: Yes posterior oropharynx normal (Difficult to see) Eyes General: appearance normal, both eyes and all related structures Neck Neck: Yes normal visual inspection Resp Effort & Inspection: normal respiratory effort, able to speak in complete sentences, Actively coughing, no respiratory distress, not tachypneic, no tripod positioning and no use of accessory muscles Auscultation: clear to auscultation bilaterally Cardio Rate: regular rate Rhythm: regular rhythm Heart sounds: normal S1 and S2 Skin General skin exam: no rashes or lesions noted Neuro General: patient oriented x3 Extrem General: Yes normal to inspection and Yes no clubbing, cyanosis or edema Assessment & Plan Assessment & Plan (1) Sinusitis: Code(s): J32.9 - Chronic sinusitis, unspecified Qualifiers: Sinusitis location: unspecified location Chronicity: acute Recurrence: non-recurrent Qualified Code(s): J01.90 - Acute sinusitis, unspecified Plan: As she has been sick for 2 weeks and her has similar symptoms and is not getting better without antibiotics, we will treat with antibiotics. Unclear if the right ear was infected, likely developing infection. Plan see above Medications: New amoxicillin-pot clavulanate 875-125 mg 1 tab PO Q12H 10 tabs 0RF Coding Level of Care Code Est Pt Level 3 (17092) Diagnoses Acute non-recurrent sinusitis, unspecified location J01.90 Sinusitis location: unspecified location Chronicity: acute Recurrence: non-recurrent
== END 2023-08-28 10:33 | disposition home or self-care (01) ==
PROVIDERS: PCP Physician Assistant; Visit Provider Physician Assistant
DX: J01.90 Acute sinusitis, unspecified (principal)
CPT/HCPCS: 99213

== ENCOUNTER 2023-10-21 09:43 | Outpatient (REF) | payer OTHER, SELFPAY ==
[2023-10-21 10:09] LABS: Hematocrit 40.6 % (37.0-47.0); Hemoglobin 13.3 g/dl (12.0-16.0); Mean Corpuscular HGB Conc 32.8 g/dl (31.0-35.0); Mean Corpuscular Hemoglobin 30.9 pg (27.0-33.0); Mean Corpuscular Volume 94.4 fL (80.0-98.0); Mean Platelet Volume 11.2 fL (9.4-12.3); Platelet Count 235 X10*3/uL (160-400); Red Cell Distribution Width 12.3 % (11.0-16.0); White Blood Count 7.8 X10*3/uL (4.8-10.8)
[2023-10-21 10:20] LABS: Estimated Average Glucose 105 mg/dL; Hemoglobin A1c % 5.3 % (<6.0)
[2023-10-21 10:51] LABS: Alanine Aminotransferase 17 U/L (0-31); Albumin Level 4.4 g/dL (3.5-5.0); Alkaline Phosphatase 55 U/L (39-117); Anion Gap 11 (12-20); Aspartate Amino Transferase 18 U/L (5-31); Bilirubin Total 0.4 mg/dL (0.0-1.0); Blood Urea Nitrogen 12 mg/dL (9-16); Calcium 8.6 mg/dL (8.4-10.2); Carbon Dioxide 26 mmol/L (22-29); Chloride 106 mmol/L (96-108); Estimated Glomerular Filt Rate > 60; Glucose Fasting 100 mg/dL (60-99); Potassium 4.2 mmol/L (3.3-5.1); Sodium 139 mmol/L (135-145); Total Protein 7.2 g/dL (6.5-8.0)
== END 2023-10-21 09:44 | disposition home or self-care (01) ==
LOC: HO.LAB 09:43
PROVIDERS: PCP Physician Assistant; Visit Provider Physician Assistant
DX: R87.610 Atypical squamous cells of undetermined significance on cytologic smear of cervix (ASC-US) (principal); R87.810 Cervical high risk human papillomavirus (HPV) DNA test positive; E28.2 Polycystic ovarian syndrome; R73.01 Impaired fasting glucose; Z13.1 Encounter for screening for diabetes mellitus
CPT/HCPCS: 36415; 80053; 83036; 85027

== ENCOUNTER 2024-01-02 09:10 | Outpatient (REF) | payer OTHER, SELFPAY ==
--- NOTE | ~2024-01-02 | MM_ITS ---
EXAMINATION: MM SCREENING DIGITAL BREAST TOMOSYNTHESIS, BILATERAL CLINICAL INFORMATION: Screening. Asymptomatic. COMPARISON: Mammography: Baseline. TECHNIQUE: Digital breast mammography with tomosynthesis is performed in both the craniocaudal and mediolateral oblique views along with computer-aided detection (CAD). FINDINGS: The breasts are heterogeneously dense, which may obscure small masses (ACR BI-RADS breast composition Category c). There are no significant masses, abnormal calcifications, or other abnormalities. MM/MM tomosynthesis screening BI IMPRESSION: No mammographic evidence of malignancy. ASSESSMENT: BI-RADS BI-RADS 1 - Negative RECOMMENDATION: Routine annual mammography screening. 1 year F/U This examination should not preclude the clinical evaluation of a suspicious palpable abnormality. This patient's information was entered into a reminder system with a target due date for their next mammogram. Electronically signed by: Yissel Tobar DO 01/12/2024 10:47 AM EDT
== END 2024-01-02 09:11 | disposition home or self-care (01) ==
LOC: HO.MAMMO 09:10
PROVIDERS: PCP Physician Assistant; Visit Provider Advanced Practice Midwife
DX: Z12.31 Encounter for screening mammogram for malignant neoplasm of breast (principal)
CPT/HCPCS: 77063; 77067

== ENCOUNTER → 2024-01-02 09:15 | Outpatient (BNV) | payer OTHER, SELFPAY | PROVIDERS: PCP Physician Assistant; Visit Provider Internal Medicine | DX: Z12.31 Encounter for screening mammogram for malignant neoplasm of breast (principal) | CPT/HCPCS: 77063; 77067 ==

== ENCOUNTER 2024-05-17 10:48 | Outpatient (AMB) | payer OTHER, SELFPAY ==
[2024-05-17 11:11] VITALS: BP 132/80; PULSE 78; TEMP 37; O2SAT 97; BMI 34.9
--- NOTE | 2024-05-17 11:11 | MHC.OFFWIV ---
Intake Vital Signs 05/17/24 11:11 Height 5 ft 5 in Weight 210 lb BMI 34.9 BP 132/80 Blood Pressure Location Lt brachial Position Sitting Pulse 78 Pulse Source Pulse Oximeter Temp 98.6 F Temp Source Oral Pulse Oximetry (%) 97 Oxygen Delivery Method Room Air Intake Visit Reasons: EP Sinus, ear infection? Patient Tobacco Use Status: Never used Tobacco Allergies minocycline Allergy (Intermediate, Verified 05/17/24 11:11) Hives Do you need a note to return to daycare/school/sports/work: No HPI HPI Comments History of Present Illness Details History - The patient is a 38-year-old female presenting with persistent earache and sinus symptoms. - Symptoms started with what appeared to be a common cold and sinus congestion lasting for several weeks. - Earache emerged this week, primarily managed with peroxide application. - She reports increasing symptoms, experiencing hot and cold flashes indicative of progression. - Current self-medication includes Tylenol and antihistamines, with no respiratory distress or allergy-related wheezing reported. - A known history of recurring ear infections, typically affecting the left side. - She appropriately uses Flonase and has prior experience with neti pots for symptom management. Physical Exam General: Cooperative, healthy appearing, comfortable and no acute distress Orientation/consciousness: Patient oriented x3 Limitations: No limitations Head: Normal to inspection Ears: Hearing grossly normal bilaterally, external ears normal and TM's with effusions, loss of landmarks and erythema bilaterally Nose: Normal external nose present, Normal nares present and No nasal discharge present Face and sinus: Normal facial exam and bilat sinuses maxillary TTP Mouth: Normal oral and palatal mucosa present and moist mucous membranes Throat: Yes tonsils normal, Yes uvula midline. Posterior oropharynx erythema Eyes: Appearance normal, both eyes and all related structures Neck: Normal visual inspection Respiratory: Normal respiratory effort, able to speak in complete sentences, Actively coughing, no respiratory distress, not tachypneic, no tripod positioning and no use of accessory muscles Skin: No rashes or lesions noted Neuro: Patient oriented x3 Extremities: Normal to inspection and Yes no clubbing, cyanosis or edema [facility] Medical History Obesity (BMI 30.0-34.9) Seasonal allergies Surgical History History of wisdom tooth extraction History of nasal surgery Family History Mother HTN (hypertension) Heart attack, Onset Age: 55 Father DMII (diabetes mellitus, type 2) Social History (Updated 08/22/23 @ 16:23 by Ector Dee PA-C) Household Members: Spouse and Family Household Members Other:: , son Housing: House Alcohol intake: current Alcohol intake frequency: a few times a month Patient Tobacco Use Status: Never used Tobacco e-Cigarette/Vaping Use: Never Used Second Hand Smoke Exposure: No Substance Use Type: Marijuana service: No Current occupational status: employed 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/hazards: No Sexual orientation: Straight/Heterosexual Gender identity: Female Cognitive needs: No Hearing needs: No Vision needs: Yes (glasses) Female Reproductive History Menstrual Age of Menarche: 10 Review of Systems Const All systems reviewed & are unremarkable except as noted in HPI and below Physical Exam Vital Signs: Last Vital Signs Temp 98.6 F 05/17/24 11:11 Pulse 78 05/17/24 11:11 BP 132/80 05/17/24 11:11 Pulse Ox 97 05/17/24 11:11 Oxygen Delivery Method Room Air 05/17/24 11:11 BMI result Body Mass Index 34.9 Assessment & Plan Assessment & Plan (1) Sinusitis: Code(s): J32.9 - Chronic sinusitis, unspecified Qualifiers: Sinusitis location: unspecified location Chronicity: acute Recurrence: non-recurrent Qualified Code(s): J01.90 - Acute sinusitis, unspecified Plan: I recommend initiating a course of Augmentin for suspected bacterial sinusitis with concurrent bilateral acute otitis media. The planned duration is 7 days, with instructions to monitor for symptom improvement which might allow cessation after 5 days. Given her symptoms, we performed tests for flu, COVID-19, and RSV. A note is provided for workplace acknowledgment of her medical condition for the day. The patient's treatment adherence is crucial for symptom resolution, given both ears are affected and baseline fluid levels are markedly elevated, indicating significant infection which historically aligns with her past otitis media recurrences. Further management will depend on test outcomes and symptom progression. Patient was informed and verbally consented to the use of an ambient scribe for clinic note documentation during this visit (2) Otitis media of both ears: Code(s): H66.93 - Otitis media, unspecified, bilateral Qualifiers: Otitis media type: suppurative Chronicity: acute Recurrence: non-recurrent Spontaneous tympanic membrane rupture: without spontaneous rupture Qualified Code(s): H66.003 - Acute suppurative otitis media without spontaneous rupture of ear drum, bilateral Plan: as above Orders: Orders SARS-CoV2/FLU/RSV Today R09.89 - Other specified symptoms and signs involving the circulatory and respiratory systems Medications: New amoxicillin-pot clavulanate 875-125 mg 1 tab PO Q12H 14 tabs 0RF Coding Level of Care Code Est Pt Level 3 (83269) Diagnoses Acute non-recurrent sinusitis, unspecified location J01.90 Sinusitis location: unspecified location Chronicity: acute Recurrence: non-recurrent Non-recurrent acute suppurative otitis media of both ears without spontaneous rupture of tympanic membranes H66.003 Otitis media type: suppurative Chronicity: acute Recurrence: non-recurrent Spontaneous tympanic membrane rupture: without spontaneous rupture
--- OUTSIDE RECORDS SUMMARY | 2024-05-17 12:19 | XMS_ITS | Clinical Summary ---
Author Organization [facility] Address [address] [place] [address] Care Team Providers Care Fish Seiner Name Role Phone Jada Jackson PA-C Primary Care Provider [phone] Source Comments PLEASE NOTE, if this patient is a minor, it may be UNLAWFUL to discuss sensitive information that is contained in these records (such as FAMILY PLANNING, MENTAL HEALTH or SUBSTANCE ABUSE) with the minor patient's parent or other person without the patient's specific authorization.[facility] Allergies Active Allergy Reactions Criticality Noted Date Comments Minocycline Hives 08/22/2016 Medications loratadine (CLARITIN) 10 mg tabletIndication s:Acute maxillary sinusitis, recurrence not specified,Allerg ic rhinitis, unspecified allergic rhinitis trigger, unspecified rhinitis seasonality Take 1 Tab by mouth once daily as needed for allergies 30 Tab 4 7 Active pseudoephedrine- guaiFENesin (MUCINEX D) 60-600 mg per 12 hr tabletIndication s:Acute maxillary sinusitis, recurrence not specified Take 1 Tab by mouth every 12 (twelve) hours as needed for congestion Swallow whole. Do not crush or chew. 7 Active Active Problems Problem Noted Date Diagnosed Date Allergic rhinitis 08/22/2016 Social History Tobacco Use Types Packs/Day Years Used Date Smoking Tobacco: Never Assessed Social Connections Answer Date Recorded Social Connections and Isolation 0 11/04/2018 Financial Resource Strain Answer Date R ecorded Financial Resource Strain 0 2018 Stress Answer Date Recorded Stress 0 11/04/2018 Physical Activity Answer Date Recorded Physical Activity 0 11/04/2018 Food Insecurity Answer Date Recorded Food 0 11/04/2018 Transportation Needs Answer Date Record ed Transportation 0 11/04/2018 Housing Stability Answer Date Recorded Housing 0 11/04/2018 Safety and Environment Answer Date Felipe rded Safety 0 11/04/2018 Utilities Answer Date Recorded Utilities 0 11/04/2018 Employment Answer Date Recorded Employment 0 11/04/2018 Comments Unknown Sex and Gender Information Value Date Recorded Sex Assigned at Not on file Legal Sex Female 6:28 AM PDT Gender Identity Not on file Sexual Orientation Not on file Last Filed Vital Signs Vital Sign Reading Time Taken Comments Blood Pressure 130/85 08/22/2016 10:32 AM EDT Pulse 72 08/22/2016 10:32 AM EDT Temperature 36.6 ??C (97.8 ??F) 08/22/2016 10:32 AM E DT Respiratory Rate 16 08/22/2016 10:32 AM EDT Oxygen Saturation - - Inhaled Oxygen Concentration - - Weight 93 kg (205 lb) 08/22/2016 10:32 AM EDT Height 162.6 cm (5' 4 ) 08/22/2016 10:32 AM EDT Body Mass Index 35.19 08/22/2016 10:32 AM EDT Plan of Treatment Not on file Insurance [facility] MEDICARE SUPP Care Teams Fish Seiner Relationship Specialty Start Date End Date Jada Jackson PA-C [address] [place] [address] PCP - General 05/08/18
== END 2024-05-17 11:36 | disposition home or self-care (01) ==
PROVIDERS: PCP Physician Assistant; Visit Provider Physician Assistant
DX: J01.90 Acute sinusitis, unspecified (principal); H66.003 Acute suppurative otitis media without spontaneous rupture of ear drum, bilateral

== ENCOUNTER 2024-05-17 10:48 | Outpatient (REF) | payer OTHER, SELFPAY ==
--- OUTSIDE RECORDS SUMMARY | 2024-05-17 13:19 | XMS_ITS | Clinical Summary ---
Author Organization [facility] Address [address] [place] [address] Care Team Providers Care Assistant Bookkeeper Name Role Phone Jada Jackson PA-C Primary Care Provider [phone] Source Comments PLEASE NOTE, if this patient [...] Plan of Treatment Not on file Insurance [facility] MEDICARE SUPP Care Teams Assistant Bookkeeper Relationship Specialty Start Date End Date Jada Jackson PA-C [address] [place] [address] PCP - General 05/08/18
[2024-05-17 14:06] LABS: Influenza A PCR NEGATIVE (Negative); Influenza B PCR NEGATIVE (Negative); Resp Syncy Virus RNA Qual PCR NEGATIVE (Negative); SARS COV2 PCR INHOUSE NEGATIVE (Negative)
== END 2024-05-17 10:49 | disposition home or self-care (01) ==
LOC: HO.LAB 10:48
PROVIDERS: PCP Physician Assistant; Visit Provider Physician Assistant
DX: R09.89 Other specified symptoms and signs involving the circulatory and respiratory systems (principal); J01.90 Acute sinusitis, unspecified; H66.003 Acute suppurative otitis media without spontaneous rupture of ear drum, bilateral; Z01.419 Encounter for gynecological examination (general) (routine) without abnormal findings
CPT/HCPCS: 0241U

== ENCOUNTER 2024-05-17 14:27 | Outpatient (AMB) | payer OTHER, SELFPAY ==
--- NOTE | 2024-05-17 14:28 | MHC.OFFVIS ---
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 No complaints. Last Pap/HPV was ascus/HPV positive, colpo biopsy ECC was negative Last Mammogram [facility] Medical History (Updated 05/17/24 @ 14:39 by Rigoberto Mayo MD) ASCUS with positive high risk HPV cervical Obesity (BMI 30.0-34.9) Seasonal allergies Surgical History History of wisdom tooth extraction History of nasal surgery Family History Mother HTN (hypertension) Heart attack, Onset Age: 55 Father DMII (diabetes mellitus, type 2) Social History Household Members: Spouse and Family Household Members Other:: , son Housing: House Alcohol intake: current Alcohol intake frequency: a few times a month Patient Tobacco Use Status: Never used Tobacco e-Cigarette/Vaping Use: Never Used Second Hand Smoke Exposure: No Substance Use Type: Marijuana service: No Current occupational status: employed 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 occupational exposures/hazards: No Sexual orientation: Straight/Heterosexual Gender identity: Female Cognitive needs: No Hearing needs: No Vision needs: Yes (glasses) Female Reproductive History Menstrual Age of Menarche: 10 Duration of menses: 6-7 days Date of last menstrual period: 05/09/24 Total pregnancies: 4 Date of last pap smear: 02/23/23 (+HPV) Date of Mammogram: 01/02/24 ([facility] RAD 1) Review of Systems Const All systems reviewed & are unremarkable except as noted in HPI and below Card Reports as per HPI Resp Reports as per HPI GI Reports as per HPI and Reports no additional complaints Reports as per HPI Physical Exam Vital Signs: BMI result Body Mass Index 35.1 Const General: cooperative, healthy appearing and comfortable Chest Chest palpation & inspection: normal inspection of the chest and normal palpation of entire chest wall Breast/axilla inspection: normal inspection of the breasts and normal inspection of the axillae Breast/axilla palpation: normal palpation of the breasts, normal palpation of the axillae and no axillary lymphadenopathy Resp Effort & Inspection: normal respiratory effort Auscultation: clear to auscultation bilaterally Percussion: percussion normal Cardio Palpation: normal PMI Rate: regular rate Rhythm: regular rhythm Heart sounds: no murmurs and no rubs Peripheral pulses: Peripheral pulses 2+ throughout GI Inspection: Yes normal to inspection Palpation (GI): Soft to palpation, nontender, no guarding, not rigid and No hepatosplenomegaly present Percussion: Yes normal to percussion Auscultation: normal bowel sounds Rectal Exam - Female: deferred General: Yes bladder normal to palpation External Female Exam: No lesion Speculum Exam - Vagina: normal appearance of the vagina, normal palpation, normal vaginal discharge and not erythematous Speculum Exam - Cervix: normal appearance of the cervix and normal palpation Bimanual exam- vagina & uterus: normal bimanual exam, normal palpation, uterine size normal, bladder normal to palpation, consistency normal and normal palpation Bimanual Exam- Adnexa, other: normal adnexae, no masses and no tenderness Assessment & Plan Assessment & Plan (1) Well woman exam: Code(s): Z01.419 - Encounter for gynecological examination (general) (routine) without abnormal findings Category: Medical Plan: Cotesting done. Instructions given the patient to schedule next screening Mammogram in 01/04. Counseled the patient about the recommended dietary allowance of 1000 mg of Calcium & 600 IU of vitamin D. The patient was instructed to perform monthly self-breast exams and to schedule an annual exam in a year; All questions answered and the patient verbalized understanding. Instructed the patient to schedule annual exam in a year Coding Level of Care Code Est Pt Prev Care 40-64y(48580) Diagnoses Well woman exam Z01.419
[2024-05-17 14:34] VITALS: BP 132/80; BMI 35.1
--- OUTSIDE RECORDS SUMMARY | 2024-05-17 16:08 | XMS_ITS | Clinical Summary ---
Author Organization [facility] Address [address] [place] [address] Care Team Providers Care Trim Installer Name Role Phone Jada Jackson PA-C Primary Care Provider [phone] [phone] Source Comments PLEASE NOTE, if this patient [...] Plan of Treatment Not on file Insurance [facility] FOR LIFE MEDICARE SUPP Care Teams Trim Installer Relationship Specialty Start Date End Date Jada Jackson PA-C [address] [place] [address] PCP - General 05/08/18
== END 2024-05-17 15:00 | disposition home or self-care (01) ==
PROVIDERS: PCP Physician Assistant; Visit Provider Obstetrics & Gynecology
DX: Z01.419 Encounter for gynecological examination (general) (routine) without abnormal findings (principal)
CPT/HCPCS: 99396; 99459

== ENCOUNTER 2024-05-17 15:15 | Outpatient (REF) | payer OTHER, SELFPAY ==
--- OUTSIDE RECORDS SUMMARY | 2024-05-17 16:49 | XMS_ITS | Clinical Summary ---
Author Organization [facility] Address [address] [place] [address] Care Team Providers Care Wire Stitcher Name Role Phone Jada Jackson PA-C Primary Care Provider [phone] Source Comments PLEASE NOTE, if this patient [...] Plan of Treatment Not on file Insurance [facility] FOR LIFE MEDICARE SUPP Care Teams Wire Stitcher Relationship Specialty Start Date End Date Jada Jackson PA-C [address] [place] [address] PCP - General 05/08/18
[2024-05-22 12:59] LABS: HPV Genotype 16 Negative (Negative); HPV Genotype 18 Negative (Negative); HPV High Risk Negative (Negative)
== END 2024-05-17 15:16 | disposition home or self-care (01) ==
LOC: HO.LNP 15:15
PROVIDERS: Visit Provider Obstetrics & Gynecology
DX: Z01.419 Encounter for gynecological examination (general) (routine) without abnormal findings (principal)
CPT/HCPCS: 87626; 88175

== ENCOUNTER 2024-09-02 13:23 | Outpatient (AMB) | payer OTHER, SELFPAY ==
[2024-09-02 13:44] VITALS: BP 142/78; PULSE 96; TEMP 36.3; O2SAT 96; BMI 35.3
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
--- OUTSIDE RECORDS SUMMARY | 2024-09-02 14:45 | XMS_ITS | Clinical Summary ---
Author Organization [facility] Address [address] [place] [address] Care Team Providers Care Fire Alarm Operator Name Role Phone Jada Jackson PA-C Primary Care Provider [phone] Source Comments PLEASE NOTE, if this patient [...] 72 08/22/2016 10:32 AM EDT Temperature 36.6 C (97.8 F) 08/22/2016 10:32 AM EDT Respiratory Rate 16 08/22/2016 10:32 AM EDT Oxygen Saturation - - Inhaled Oxygen Concentration - - Weight 93 kg (205 lb) 08/22/2016 10:32 AM EDT Height 162.6 cm (5' 4 ) 08/22/2016 10:32 AM EDT Body Mass Index 35.19 08/22/2016 10:32 AM EDT Plan of Treatment Not on file Insurance [facility] [place] [facility] MEDICARE SUPP Care Teams Fire Alarm Operator Relationship Specialty Start Date End Date Jada Jackson PA-C [address] [place] [id number] PCP - General 05/08/18
== END 2024-09-02 14:11 | disposition home or self-care (01) ==
LOC: HO.HMCH 13:24
PROVIDERS: PCP Physician Assistant; Visit Provider Physician Assistant
DX: Z00.00 Encounter for general adult medical examination without abnormal findings (principal); E66.812 Obesity, class 2; Z68.35 Body mass index [BMI] 35.0-35.9, adult; R03.0 Elevated blood-pressure reading, without diagnosis of hypertension; F41.1 Generalized anxiety disorder

== ENCOUNTER → 2024-09-02 13:23 | Outpatient (BNVA) | payer OTHER, SELFPAY | PROVIDERS: PCP Physician Assistant; Visit Provider Physician Assistant | DX: Z00.00 Encounter for general adult medical examination without abnormal findings (principal); F41.9 Anxiety disorder, unspecified; E28.2 Polycystic ovarian syndrome; R03.0 Elevated blood-pressure reading, without diagnosis of hypertension; F41.1 Generalized anxiety disorder; I10 Essential (primary) hypertension; E66.812 Obesity, class 2; Z68.35 Body mass index [BMI] 35.0-35.9, adult | CPT/HCPCS: 96127 ==

== ENCOUNTER 2024-10-05 08:24 | Outpatient (REF) | payer OTHER, SELFPAY ==
[2024-10-05 08:49] LABS: Hematocrit 41.7 % (37.0-47.0); Hemoglobin 13.7 g/dl (12.0-16.0); Mean Corpuscular HGB Conc 32.9 g/dl (31.0-35.0); Mean Corpuscular Hemoglobin 31.0 pg (27.0-33.0); Mean Corpuscular Volume 94.3 fL (80.0-98.0); NRBC Abs Auto 0.000 X10*3/uL (0.0-0.012); NRBC Pct Auto 0.0 /100WBC (0.0-0.2); Platelet Count 211 X10*3/uL (160-400); Red Blood Count 4.42 X10*6/uL (4.20-5.50); White Blood Count 7.5 X10*3/uL (4.8-10.8)
[2024-10-05 09:15] LABS: Alanine Aminotransferase 17 U/L (0-31); Albumin Level 4.5 g/dL (3.5-5.0); Alkaline Phosphatase 53 U/L (39-117); Anion Gap 12 (12-20); Aspartate Amino Transferase 21 U/L (5-31); Blood Urea Nitrogen 12 mg/dL (9-16); Calcium 8.9 mg/dL (8.4-10.2); Carbon Dioxide 27 mmol/L (22-29); Chloride 105 mmol/L (96-108); Estimated Glomerular Filt Rate > 60; Potassium 4.5 mmol/L (3.3-5.1); Sodium 139 mmol/L (135-145); Total Protein 7.0 g/dL (6.5-8.0)
[2024-10-05 10:48] LABS: Microalbum/Creatinine Ratio Ur 15.5 ug/mg cr (<30)
== END 2024-10-05 08:25 | disposition home or self-care (01) ==
LOC: HO.LAB 08:24
PROVIDERS: PCP Physician Assistant; Visit Provider Physician Assistant
DX: I10 Essential (primary) hypertension (principal)
CPT/HCPCS: 36415; 80053; 82043; 82570; 85027

== ENCOUNTER 2025-01-09 15:20 | Outpatient (AMB) | payer OTHER, SELFPAY ==
--- NOTE | 2025-01-09 15:24 | AM.OFFWIN_ITS ---
Intake Vital Signs 01/09/25 15:25 Height 5 ft 5 in Weight 214 lb BMI 35.6 BP 120/90 H Blood Pressure Location Rt brachial Position Sitting Pulse 78 Pulse Source Pulse Oximeter Temp 98.6 F Temp Source Oral Pulse Oximetry (%) 99 Oxygen Delivery Method Room Air Intake Visit Reasons: EP Left ear pain Intake Note: Patient presents with c/o left ear pain/pressure x3 days. Patient Tobacco Use Status: Never used Tobacco Allergies minocycline Allergy (Intermediate, Verified 01/09/25 15:26) Hives Medication List - Last Reconciled 01/09/25 by Lenora Jennings NP cetirizine (Zyrtec) 10 mg PO DAILY fluticasone propionate 50 mcg/actuation (Flonase Allergy Relief) 1 spray intranasal BID Do you need a note to return to daycare/school/sports/work: No HPI HPI Comments History of Present Illness Details 39 y/o Female patient who presents to [facility] walk in clinic with c/o Left Ear Pain for 3 days. She has been using Hydrogen Peroxide with no relief. Reports Nasal congestion and runny nose. She does have h/o Seasonal allergies and takes OTC allergy medications. Denies Fevers but reports Body chills. Denies nausea or vomiting. [facility] Medical History (Updated 01/09/25 @ 15:45 by Lenora Jennings NP) Fluid level behind tympanic membrane of both ears Acute otalgia ASCUS with positive high risk HPV cervical Obesity (BMI 30.0-34.9) Seasonal allergies Surgical History History of wisdom tooth extraction History of nasal surgery Family History Mother HTN (hypertension) Heart attack, Onset Age: 55 Father DMII (diabetes mellitus, type 2) Social History Household Members: Spouse and Family Household Members Other:: , son Housing: House Alcohol intake: current Alcohol intake frequency: a few times a month Patient Tobacco Use Status: Never used Tobacco e-Cigarette/Vaping Use: Never Used Second Hand Smoke Exposure: No Substance Use Type: Marijuana service: No Current occupational status: employed 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 occupational exposures/hazards: No Sexual orientation: Straight/Heterosexual Gender identity: Female Cognitive needs: No Hearing needs: No Vision needs: Yes (glasses) Female Reproductive History Menstrual Age of Menarche: 10 Review of Systems Const All systems reviewed & are unremarkable except as noted in HPI and below Physical Exam Vital Signs: Last Vital Signs Temp 98.6 F 01/09/25 15:25 Pulse 78 01/09/25 15:25 BP 120/90 H 01/09/25 15:25 Pulse Ox 99 01/09/25 15:25 Oxygen Delivery Method Room Air 01/09/25 15:25 BMI result Body Mass Index 35.6 Const General: no acute distress Nutritional Appearance: obese Orientation/consciousness: patient oriented x3 HEENT Head: Yes normocephalic Ears: external ears normal and TM abnormal bulging bilateral, wth effusion serous and with fluid behind the TM bilateral; not perforated and not retracted General nose exam: Normal external nose present Face and sinus: Yes sinuses nontender Mouth: moist mucous membranes Throat: Yes uvula midline Neuro General: patient oriented x3, gait normal and moves all extremities Psych Speech and movement: Normal speech and movement present Assessment & Plan Assessment & Plan (1) Acute otalgia: Code(s): H92.09 - Otalgia, unspecified ear Qualifiers: Laterality: left Qualified Code(s): H92.02 - Otalgia, left ear Plan: Ordered Zrytec BID and Flonase nasal spray. Acetaminophen for Ear pain relief. RTC if symptoms worse. Medications: New cetirizine (Zyrtec) 10 mg PO DAILY 30 tabs 0RF H65.93 - Unspecified nonsuppurative otitis media, bilateral fluticasone propionate 50 mcg/actuation (Flonase Allergy Relief) administer into each nostril 1 spray intranasal BID 16 grams 0RF H65.93 - Unspecified nonsuppurative otitis media, bilateral Coding Level of Care Code Est Pt Level 4 (63662) Diagnoses Acute pain of left ear H92.02 Laterality: left Time Spent (min) 20
[2025-01-09 15:25] VITALS: BP 120/90; PULSE 78; TEMP 37; O2SAT 99; BMI 35.6
== END 2025-01-09 15:54 | disposition home or self-care (01) ==
PROVIDERS: PCP Physician Assistant; Visit Provider Nurse Practitioner Family
DX: H92.02 Otalgia, left ear (principal)

== ENCOUNTER 2025-01-31 09:20 | Outpatient (REF) | payer OTHER, SELFPAY ==
--- NOTE | ~2025-01-31 | MM_ITS ---
EXAMINATION: MM SCREENING DIGITAL BREAST TOMOSYNTHESIS, BILATERAL CLINICAL INFORMATION: Screening. Asymptomatic. COMPARISON: Mammography: Comparison is made with available priors TECHNIQUE: Digital breast mammography with tomosynthesis is performed in both the craniocaudal and mediolateral oblique views along with computer-aided detection (CAD). FINDINGS: The breasts are heterogeneously dense, which may obscure small masses. There are no significant masses, abnormal calcifications, or other abnormalities. MM/MM tomosynthesis screening BI IMPRESSION: No mammographic evidence of malignancy. ASSESSMENT: BI-RADS Category 1: Negative RECOMMENDATION: Routine annual mammography screening. 1 year F/U This examination should not preclude the clinical evaluation of a suspicious palpable abnormality. This patient's information was entered into a reminder system with a target due date for their next mammogram. Electronically signed by: Yissel Tobar DO 02/03/2025 06:08 PM [facility]
== END 2025-01-31 09:21 | disposition home or self-care (01) ==
LOC: HO.MAMMO 09:20
PROVIDERS: PCP Physician Assistant; Visit Provider Physician Assistant
DX: Z12.31 Encounter for screening mammogram for malignant neoplasm of breast (principal)
CPT/HCPCS: 77063; 77067

== ENCOUNTER → 2025-01-31 09:30 | Outpatient (BNV) | payer OTHER, SELFPAY | PROVIDERS: PCP Physician Assistant; Visit Provider Internal Medicine | DX: Z12.31 Encounter for screening mammogram for malignant neoplasm of breast (principal) | CPT/HCPCS: 77063; 77067 ==